=== PATIENT | male | born 1975 | race Asian ===

== ENCOUNTER → 2024-09-01 10:54 | Outpatient (BNVA) | payer OTHER, SELFPAY | PROVIDERS: Visit Provider Physician Assistant Medical | DX: S61.211A Laceration without foreign body of left index finger without damage to nail, initial encounter (principal); W26.0XXA Contact with knife, initial encounter | CPT/HCPCS: 99204 ==

== ENCOUNTER → 2024-09-03 09:35 | Outpatient (BNVA) | payer OTHER, SELFPAY | PROVIDERS: Visit Provider Physician Assistant Medical | DX: S61.211A Laceration without foreign body of left index finger without damage to nail, initial encounter (principal); W26.9XXA Contact with unspecified sharp object(s), initial encounter | CPT/HCPCS: 99213 ==

== ENCOUNTER 2024-09-09 11:39 | Outpatient (AMB) | payer OTHER, SELFPAY ==
--- NOTE | 2024-09-09 11:49 | A.OFFVIS_ITS ---
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 States while at work he cut himself with a razor knife. Seen at work connection same day where his laceration was sutured. States he has numbness in his DIP. States he has little pain and discomfort. 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 This was sutured at work connections and he was referred here. He presents today with complaints of some pain in his finger, as well as numbness to the fingertip & DIP joint of his index finger, which began following his injury. He works in [employer] [facility] Medical History (Updated 09/09/24 @ 13:31 by Yajaira Vasquez MD) Kidney stones Social History (Updated 09/09/24 @ 11:51 by Amaya Thrasher CCM) Current occupational status: employed Current occupation: glass glazer/ rt hand Review of Systems Const All systems reviewed & are unremarkable except as noted in HPI and below Physical Exam Vital Signs: BMI result Body Mass Index 28.2 Const General: cooperative, healthy appearing and no acute distress Orientation/consciousness: patient oriented x3 HEENT Head: Yes normocephalic and Yes atraumatic Eyes EOM: EOMs intact bilaterally Resp Effort & Inspection: normal respiratory effort and able to speak in complete sentences Cardio Jugular venous distension: no JVD Skin General skin exam: turgor normal Rashes: no rashes Neuro General: patient oriented x3 Extrem Other: Evaluation of Left Upper Extremity: The patient is alert, oriented, and in no acute distress Neuro: Median, Ulnar, Radial nerves motor and sensory intact and sensation is normal to the tips of all digits, except for dense numbness to the radial digital nerve distribution of the index finger, distal from the DIP joint laceration site Vascular: Cap refill brisk ROM: He can make a fist and extend all his digits Good FDP & FDS tendon function Skin: Laceration on the radial side of the index finger, just distal to the DIP joint, ~5-6mm in length, sutured General: No Ecchymosis. No Erythema or evidence of infection. Radiographs: New radiographs of both hands were reviewed by me today. They show no fractures but she does have bilateral basal joint osteoarthritis with joint space narrowing subluxation and osteophyte formation. Psych Appearance: grossly normal Affect: normal affect Attitude: cooperative Assessment & Plan Assessment & Plan (1) Digital nerve laceration, finger: Code(s): S64.40XA - Injury of digital nerve of unspecified finger, initial encounter Category: Medical Plan Assessment & Plan: 1. Left index finger laceration From a knife, DOI: 09/01/24 This is a work-related injury 2. Left index finger radial digital nerve laceration distal to the D IP joint From a work injury, DOI: 09/01/24 I educated him about this condition I discussed operative and non-operative treatment options I explained that, as distal as this laceration is, that it is irreparable. He will perform gentle ROM exercises at home He should avoid any underwater activities for the next 5 days I explained he is not likely to have his sensation return to the tip of his index finger, and he expressed understanding He can follow up prn Scribed for Yajaira Vasquez MD by Edwin Conklin, bilingual medical receptionist, on 09/09/24 at 11:55 AM, EST. Coding Level of Care Code New Pt Level 4 (53411) Diagnoses Digital nerve laceration, finger S64.40XA
[2024-09-09 11:50] VITALS: BMI 28.2
== END 2024-09-09 12:09 | disposition home or self-care (01) ==
PROVIDERS: Visit Provider Orthopaedic Surgery
DX: S64.491A Injury of digital nerve of left index finger, initial encounter (principal)
CPT/HCPCS: 99203

== ENCOUNTER → 2024-09-09 11:39 | Outpatient (BNVA) | payer OTHER, SELFPAY | PROVIDERS: Visit Provider Orthopaedic Surgery | DX: S64.40XA Injury of digital nerve of unspecified finger, initial encounter (principal) | CPT/HCPCS: 99202 ==